=== PATIENT | male | born 1965 | race Caucasian/White ===

== ENCOUNTER 2019-03-14 13:51 | Outpatient (CLI) | payer OTHER ==
--- NOTE | 2019-03-14 14:16 | RAD ---
CERVICAL SPINE 4 VIEWS: HISTORY: Disability. Spinal stenosis. Cervical spine surgery in October 2018. Cervical pain. FINDINGS/IMPRESSION: There are postop changes of anterior spinal fusion with plate and screws and intradiskal prostheses a t C3-C4-C5-C6 and C7 levels. The metallic hardware is intact. There are degenerative changes in the spine. No acute fracture or subluxation is seen. POS: OFF
== END 2019-03-14 13:52 | disposition home or self-care (01) ==
LOC: NAV RAD 13:51
PROVIDERS: ATTEND Family Medicine
DX: Z02.71 Encounter for disability determination (principal); M48.02 Spinal stenosis, cervical region; M47.812 Spondylosis without myelopathy or radiculopathy, cervical region; Z98.1 Arthrodesis status
CPT/HCPCS: 72040